=== PATIENT | female | born 1950 | race Caucasian/White ===

== ENCOUNTER 2018-06-18 14:49 | Emergency (ER) | payer MEDICARE ==
[~2018-06-18] VITALS: Ht 165.1 cm; Wt 77.0 kg
[2018-06-18 14:59] VITALS: BP 125/78
== END 2018-06-18 16:00 | disposition home or self-care (01) ==
LOC: ER 14:51
DX: S86.912A Strain of unspecified muscle(s) and tendon(s) at lower leg level, left leg, initial encounter (principal); X58.XXXA Exposure to other specified factors, initial encounter; Y93.89 Activity, other specified; Y92.89 Other specified places as the place of occurrence of the external cause; Y99.8 Other external cause status
CPT/HCPCS: 99281